=== PATIENT | female | born 1960 | race Caucasian/White ===

== ENCOUNTER 2016-11-15 07:09 | Emergency (ER) | payer BC ==
[~2016-11-15] VITALS: Ht 170.2 cm; Wt 71.7 kg
[2016-11-15] MEDS ORDERED: TETRACAINE HCL/PF 0.5% UD 2 ML BOTTLE ONE (07:24)
[2016-11-15] MEDS ORDERED: TETRACAINE HCL/PF 0.5% UD 2 ML BOTTLE RIGHTEYE ONE (07:30)
[2016-11-15] MEDS ORDERED: FLUORESCEIN SODIUM OPHTH 1 EA STRIP OP ONE (07:30)
[2016-11-15 07:46] VITALS: BP 129/68
== END 2016-11-15 07:47 | disposition home or self-care (01) ==
LOC: ER 07:11
DX: H16.001 Unspecified corneal ulcer, right eye (principal); E03.9 Hypothyroidism, unspecified
CPT/HCPCS: 99283; A4606; Z7610